=== PATIENT | female | born 1985 | race Caucasian/White ===

== ENCOUNTER 2023-12-17 01:01 | Emergency (ER) | payer SELFPAY ==
[2023-12-17 02:32] VITALS: BP 121/82; PULSE 96; RESP 16; TEMP 36.5; O2SAT 99; BMI 23.5
--- NOTE | 2023-12-17 03:26 | ED_ITS ---
HPI - General Adult General Chief complaint: Laceration/Wound Stated complaint: Cut her R hand at work Time Seen by Provider: 12/17/23 03:11 Source: patient Mode of arrival: ambulatory Limitations: no limitations History of Present Illness HPI narrative: 38-year-old female presents the ED after she cut her hand at work. 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 She had a lift the bag up over her head to get into the dumpster. There was no visible glass or break in the bag she thought but after she lifted, she felt pain in her right hypothenar eminence area. When she looked down there was slight bleeding. No foreign body. No evidence of broken glass on the ground. Tetanus is up-to-date. She tried applying pressure and a Band-Aid from a first-aid kit but there is still some oozing. Tenderness noted. No difficulty moving hand, spreading fingers, making a tight fist. No pain in the wrist or other areas of injury. Not anticoagulated. No numbness or tingling. Allergies to amoxicillin penicillin and sulfa. Denies long-term medications. ROS notable for no other generalized, skin or musculoskeletal symptoms. Related Data Home Medications ?Medication ?Instructions ?Recorded ?Confirmed No Known Home Medications 12/17/23 12/17/23 Allergies Allergy/AdvReac Type Severity Reaction Status Date / Time amoxicillin Allergy Verified 12/17/23 02:41 Penicillins Allergy Verified 12/17/23 02:41 Sulfa (Sulfonamide Allergy Verified 12/17/23 02:41 Antibiotics) Exam Const: Vital Signs, click to edit/add: Vital Signs - 24 hr 12/17/23 02:32 Temperature 97.7 F Pulse Rate [Pulse Oximeter] 96 Respiratory Rate 16 Blood Pressure [Ri ght Upper Arm] 121/82 Pulse Oximetry 99 Oxygen Delivery Me thod Room Air Documenting provider has reviewed patient's vital signs: yes General appearance: cooperative and well kempt HENMT: Common normals: normocephalic Head and scalp: normocephalic Eye: General eye: normal appearance of both eyes Resp: Common normals: normal respiratory effort Effort & inspection: able to speak in complete sentences Extremity: Other: Right hand and wrist examined. Normal range of motion of all fingers, wrist. Normal strength. Normal opposition of thumb and pinky, normal movement. Normal strength. There is a 2 cm long laceration to the hypothenar eminence, mostly vertical. It is mostly just epidermal depth but in the center portion for about 1 cm total it is down to the dermis also. Very slight oozing. Gait only slightly with making a fist. No visible tendon or vasculature involvement. Normal capillary refill and sensation in pinky distal. Psych: Appearance: well kempt Attitude: engaged Insight: insight good Judgement: judgment good Skin: Narrative: Other than the small cut on the right hand, no other areas of injury. Course Course ED Course: Area was cleansed by nurse and soaked in Hibiclens extensively. Wound was then examined with no signs of foreign body. Confirm neurovascular and joint function. Discussed closure options. Recommended Dermabond. Wound was pulled perpendicular to reapproximate any visible gape. Covered with 2 layers of Dermabond. Well tolerated. This resulted in good hemostasis and cosmetic closure. Patient reports tetanus is up-to-date. Care wound discussed. All questions answered, written instructions provided. Low risk for infection. See discharge instructions. Vital Signs Vital signs: Initial Vital Signs Temperature 97.7 F 12/17/23 02:32 Temperature Source Temporal Artery Scan 12/17/23 02:32 Pulse Rate 96 12/17/23 02:32 Respiratory Rate 16 12/17/23 02:32 Blood Pressure 121/82 12/17/23 02:32 Blood Pressure Mean 95 12/17/23 02:32 Blood Pressure Position Supine 12/17/23 02:32 Pulse Oximetry 99 12/17/23 02:32 Oxygen Delivery Method Room Air 12/17/23 02:32 Vital Signs Temperature 97.7 F 12/17/23 02:32 Pulse Rate 96 12/17/23 02:32 Respiratory Rate 16 12/17/23 02:32 Blood Pressure 121/82 12/17/23 02:32 Pulse Oximetry 99 12/17/23 02:32 Oxygen Delivery Method Room Air 12/17/23 02:32 Temperature 97.7 F 12/17/23 02:32 Pulse Rate 96 12/17/23 02:32 Respiratory Rate 16 12/17/23 02:32 Blood Pressure 121/82 12/17/23 02:32 Pulse Oximetry 99 12/17/23 02:32 Oxygen Delivery Method Room Air 12/17/23 02:32 Discharge Plan Discharge Clinical Impression: Laceration of hand without complication, excluding fingers Patient Disposition: Home, Self-Care Condition: Improved Instructions: Skin Adhesive Care (ED) Additional Instructions: As we discussed, the wound on your hand was covered with a special type of skin glue that will promote healing and keep the wound from reopening. It is okay to get briefly wet but try to avoid soaking in water for the next 48 hours. It is okay to cover with a dressing but try to avoid anything that would stick to the glue layer and pull it off if removed. The glue will flake off on its own in a few days. The wound will heal in the meantime. Do not apply any Vaseline or antibiotic ointment. Infection is unlikely but if you notice redness, significant swelling or drainage after a few days, please follow-up in the clinic for further evaluation. Try not to pick at the glue for at least 3 days, after that you may gently trim away as needed, it will fall off on its own in time. Activity Level: Activity as Tolerated Discharge Diet: Regular Prescriptions: No Action No Known Home Medications Stand Alone Forms: [facility] Info Instructions
[2023-12-17 03:38] VITALS: BP 124/66; PULSE 68; RESP 16; TEMP 36.7; O2SAT 97
== END 2023-12-17 03:41 | disposition home or self-care (01) ==
PROVIDERS: Emergency Provider Family Medicine
DX: S61.411A Laceration without foreign body of right hand, initial encounter (principal); W25.XXXA Contact with sharp glass, initial encounter; Y99.0 Civilian activity done for income or pay
CPT/HCPCS: 12001; 99282; 99283